=== PATIENT | male | born 1975 | race Caucasian/White ===

== ENCOUNTER → 2020-05-30 | Outpatient (CLI) | payer OTHER ==
[~2020-05-30] MED LIST: ALLO300T PO; IBUP-1223 PO; META800T PO; NEBI10TA3 PO; TRAZ50TA66 PO; VALS1TAB22 PO
[2020-05-30 16:08] LABS: ALANINE AMINOTRANSFERASE 96 U/L (12-78); ALBUMIN 3.9 g/dL (3.4-5.0); ANION GAP 7 mmol/L (5-15); CALCIUM 9.3 mg/dL (8.5-10.1); CHLORIDE 108 mmol/L (98-107); CREATININE 1.06 mg/dL (0.7-1.3)
[2020-05-30 16:10] LABS: ALKALINE PHOSPHATASE 90 U/L (45-117); BILIRUBIN,TOTAL 0.4 mg/dL (0.2-1.0); TOTAL PROTEIN 7.5 g/dL (6.4-8.2)
== END | disposition home or self-care (01) ==
LOC: STAR 15:08
PROVIDERS: ATTEND Orthopaedic Surgery
DX: Z01.812 Encounter for preprocedural laboratory examination (principal); Z20.828 Contact with and (suspected) exposure to other viral communicable diseases; M12.832 Other specific arthropathies, not elsewhere classified, left wrist
CPT/HCPCS: 36415; 80053; 87635

== ENCOUNTER 2020-06-05 06:40 | Day surgery (SDC) | payer OTHER ==
[~2020-06-05] VITALS: Ht 180.3 cm; Wt 123.0 kg
[2020-06-05 07:22] VITALS: BP 136/92
[2020-06-05] MEDS ORDERED: CHLORHEXIDINE 15 ML UDC MM ONE (07:30)
[2020-06-05] MEDS ORDERED: LACTATED RINGERS 1,000 ML IV SCH (07:30)
[2020-06-05] MEDS ORDERED: MIDAZOLAM 1 MG/ML, 2ML ONE (07:58)
[2020-06-05] MEDS ORDERED: FENTANYL PF 100 MCG/2ML ONE ×2 (07:59→11:21)
[2020-06-05] MEDS ORDERED: DIAZEPAM 5 MG/ML, 2ML IVPush PRN (09:00)
[2020-06-05] MEDS ORDERED: HYDROmorphone 2 MG/ML, 1ML IVPush PRN (09:00)
[2020-06-05] MEDS ORDERED: KETOROLAC 30 MG/1 ML IV PRN (09:00)
[2020-06-05] MEDS ORDERED: LABETALOL 5MG/ML, 20ML IV PRN (09:00)
[2020-06-05] MEDS ORDERED: OXYcodone 5 MG/5 ML ORAL.SOL UDC PO PRN (09:00)
[2020-06-05] MEDS ORDERED: hydrALAzine 20 MG/ML, 1ML IV PRN (09:00)
[2020-06-05] MEDS ORDERED: MEPERIDINE/PF 25MG/0.5ML IVPush PRN (09:00)
[2020-06-05] MEDS ORDERED: ALBUTEROL SULFATE 2.5 MG/3 ML NPPB PRN (09:00)
[2020-06-05] MEDS ORDERED: ACETAMINOPHEN 325 MG TABLET PO PRN (09:00)
[2020-06-05] MEDS ORDERED: PROMETHAZINE 25 MG/ML, 1ML IV PRN (09:00)
[2020-06-05] MEDS ORDERED: GLYCOPYRROLATE 0.2MG/1ML, 5ML ONE (10:18)
[2020-06-05] MEDS ORDERED: ROCURONIUM 10MG/ML,5ML ONE (10:18)
[2020-06-05] MEDS ORDERED: PROPOFOL 10 MG/ML, 20ML ONE (10:18)
[2020-06-05] MEDS ORDERED: DEXAMETHASONE 4 MG/ML, 1ML ONE (10:18)
[2020-06-05] MEDS ORDERED: CEFAZOLIN 1,000 MG ONE (10:18)
[2020-06-05] MEDS ORDERED: NEOSTIGMINE 1 MG/ML, 10ML ONE (10:18)
[2020-06-05] MEDS ORDERED: ONDANSETRON 2MG/ML, 2ML ONE (10:18)
[2020-06-05] MEDS ORDERED: SUCCINYLCHOLINE 20 MG/ML, 10ML ONE (10:18)
[2020-06-05] MEDS ORDERED: OXYcodone 5 MG/5 ML ORAL.SOL UDC ONE (11:12)
[2020-06-05] MEDS ORDERED: KETOROLAC 30 MG/1 ML ONE (11:16)
[2020-06-05] MEDS: FENTANYL PF 100 MCG/2ML IV PRN ×2 (11:23→11:35)
== END 2020-06-05 12:55 | disposition home or self-care (01) ==
LOC: OUT 06:40
PROVIDERS: ATTEND Orthopaedic Surgery
DX: S62.022K Displaced fracture of middle third of navicular [scaphoid] bone of left wrist, subsequent encounter for fracture with nonunion (principal); G89.18 Other acute postprocedural pain; I10 Essential (primary) hypertension; G47.30 Sleep apnea, unspecified; Z79.899 Other long term (current) drug therapy; Z87.891 Personal history of nicotine dependence; X58.XXXD Exposure to other specified factors, subsequent encounter
CPT/HCPCS: 25310; 25825; 64415; 73110; C1713; C1769; J0330; J0690; J1100; J1885; J2250; J2405; J2704; J2710; J3010; J7120; 76000